=== PATIENT | female | born 1980 | race African-American/Black ===

== ENCOUNTER 2021-08-15 18:10 | Inpatient (IN) | payer BC ==
[~2021-08-15] VITALS: Ht 170.2 cm; Wt 0.5 kg
[2021-08-19] MEDS ORDERED: NAPR500T14 PO (09:15)
[2021-08-19] MEDS ORDERED: Tylenol #3 PO (09:15)
== END 2021-08-19 17:08 | disposition home or self-care (01) | DRG 786 ==
LOC: LDR 18:10 → OB/GYN 18:10 → LDR 08-16 20:56 → OB/GYN 08-16 21:03
PROVIDERS: ADMIT Obstetrics & Gynecology; ATTEND Obstetrics & Gynecology
PROC: 4A1HXCZ Monitoring of Products of Conception, Cardiac Rate, External Approach (ICD-10-PCS; 2021-08-15)
PROC: 10D00Z0 Extraction of Products of Conception, High, Open Approach (ICD-10-PCS; principal; 2021-08-16 20:00)
DX: O42.012 Preterm premature rupture of membranes, onset of labor within 24 hours of rupture, second trimester (principal); O60.12X0 Preterm labor second trimester with preterm delivery second trimester, not applicable or unspecified; O41.1220 Chorioamnionitis, second trimester, not applicable or unspecified; O22.22 Superficial thrombophlebitis in pregnancy, second trimester; O34.211 Maternal care for low transverse scar from previous cesarean delivery; Z3A.26 26 weeks gestation of pregnancy; Z37.0 Single live birth; Z20.822 Contact with and (suspected) exposure to COVID-19